=== PATIENT | female | born 1940 | race Caucasian/White ===

== ENCOUNTER → 2023-04-10 | Outpatient (CLI) | payer MEDICARE ==
--- NOTE | 2023-04-10 15:16 | Diagnostic Imaging Report ---
EXAMINATION: Left ankle 3 views HISTORY: Ankle pain COMPARISON: None available. FINDINGS: There has been open reduction and internal fixation of bimalleolar fractures. Fractures are healed. No new fracture. Mortise is intact. There is a heel spur. No acute fracture. IMPRESSION: 1. Healed fixated bimalleolar fractures without acute fracture. Dictated by: Dictated on workstation # [id number]
== END ==
LOC: ORTHO 13:54
PROVIDERS: ATTEND Orthopaedic Surgery
DX: S82.842D Displaced bimalleolar fracture of left lower leg, subsequent encounter for closed fracture with routine healing (principal); X58.XXXD Exposure to other specified factors, subsequent encounter
CPT/HCPCS: 73610; G0463; 99203

== ENCOUNTER → 2023-05-09 | Outpatient (CLI) | payer MEDICARE | LOC: ORTHO 09:49 | PROVIDERS: ATTEND Orthopaedic Surgery | DX: R22.42 Localized swelling, mass and lump, left lower limb (principal) | CPT/HCPCS: 99213 ==